=== PATIENT | male | born 1980 | race Two or more races ===

== ENCOUNTER 2019-09-24 06:31 | Emergency (ER) | payer SELFPAY ==
[~2019-09-24] VITALS: Ht 182.9 cm; Wt 86.2 kg
--- NOTE | 2019-09-24 06:55 | NUR ---
PT CAME TO ER BED 12 C/O BILATERAL FOOT PAIN. PT STATES THAT THE PAIN STARTED YESTERDAY. PT STATES THAT HE HAS REOCCURRING FOOT PAIN FROM WALKING. STATES THAT THE BLISTERS WILL HEAL AND BECOME CALLUSES THEN BECOME BLISTERS. BLISTERS NOTED ON ANKLE AND BALL OF FOOT. AAOX4. NO SOB. BREATHING EVENLY AND UNLABORED ON ROOM AIR. AWAITING MD KOENIG
[2019-09-24 07:13] LABS: BASOPHILS % (AUTO) 0.6 % (0.0-2.0); EOSINOPHILS % (AUTO) 1.1 % (0.0-6.0); HEMATOCRIT 39 % (39-51); HEMOGLOBIN 12.5 g/dL (13.5-17.5); LYMPHOCYTES # (AUTO) 0.9 /CMM (0.8-4.8); LYMPHOCYTES % (AUTO) 16.8 % (20.0-44.0); MEAN CORPUSCULAR HGB CONC 32 g/dl (31.0-36.0); MEAN CORPUSCULAR VOLUME 83 fL (80-96); MONOCYTES # (AUTO) 0.5 /CMM (0.1-1.30); MONOCYTES % (AUTO) 10.1 % (2.0-12.0); NEUTROPHILS # (AUTO) 3.9 /CMM (1.8-8.9); NEUTROPHILS % (AUTO) 71.4 % (43.0-81.0); PLATELET COUNT (AUTO) 303 /CMM (150-450); RED BLOOD CELL COUNT(AUTO) 4.63 MIL/uL (4.5-6.0); WHITE BLOOD COUNT (AUTO) 5.4 K/uL (4.3-11.0)
[2019-09-24] MEDS ORDERED: CEFTRIAXONE 500 MG VIAL ONE (07:13)
[2019-09-24] MEDS ORDERED: AZITHROMYCIN 250 MG TABLET ONE (07:14)
[2019-09-24] MEDS ORDERED: PENICILLIN G BENZATHINE 2.4 MMU/4 ML ML IM ONE ×2 (07:14→07:30)
[2019-09-24] MEDS ORDERED: LIDOCAINE /MPF 1% VIAL 5 ML VIAL ONE (07:15)
[2019-09-24 07:27] LABS: CALCIUM, SERUM 8.5 mg/dL (8.5-10.1); POTASSIUM 4.1 mmol/L (3.5-5.1)
[2019-09-24] MEDS ORDERED: CEFTRIAXONE 500 MG VIAL IM ONE (07:30)
[2019-09-24] MEDS ORDERED: AZITHROMYCIN 250 MG TABLET PO ONE (07:30)
[2019-09-24 07:33] LABS: ALBUMIN 3.8 g/dL (3.4-5.0); BILIRUBIN,DIRECT 0.1 mg/dL (0.0-0.2); BILIRUBIN,TOTAL 0.4 mg/dL (0.2-1.0); TOTAL PROTEIN, SERUM 7.4 g/dL (6.4-8.2)
--- NOTE | 2019-09-24 07:59 | NUR ---
Iker gonzalez in [facility] - 09/24/19 at 0904 by [employer] SUPERVISOR [facility]
--- NOTE | 2019-09-24 08:22 | NUR ---
AWAITING FOR [employer] FACULTY MEMBER
--- NOTE | 2019-09-24 08:42 | NUR ---
PHOTOGRAPHER FINISH CODY AT BEDSIDE, SIGNED HOMELESS WAIVER FORM
--- NOTE | 2019-09-24 08:58 | NUR ---
BREAKFAST TRAY PROVIDED, TOLERATING PO WELL.
[2019-09-24] MEDS ORDERED: CLOTRIMAZOLE 1% 15 GM TUBE TP SCH (09:00)
--- NOTE | 2019-09-24 09:00 | NUR ---
Social service consult requested by for homelessness. Per MD notes, pt is a 39-year-old man who is currently homeless and came to ED due to an STD. TUBE LANCER met with the pt. bedside. Pt is alert and oriented x 4. Pt's mood is congruent. Pt. had his eyes closed for most part of the assessment. Pt reports he came out to [place] for job but didn't work out. Pt is from [place]. Pt is currently living on the streets. Pt states he has been homeless for about a year. TUBE LANCER informed pt. about the winter correction program. Pt currently denies any substance abuse and states, he drinks alcohol at times. Pt reports to have a diagnosis of ADHD and was taking Adderall in the past. Pt denies suicidal and homicidal ideations and visual/ auditory hallucinations at this time. Pt reports to have no source of income. TUBE LANCER encouraged pt to apply for GR and food stamps and gave him a list of [facility]PSS offices in [place] and [facility]. TUBE LANCER also provided pt with the following homeless packet: [facility] [id number] [place] [facility] program list, [facility] located at [address] [facility] ; [facility] [place], [address] [place] [address], [place] ; [facility] [place], [address] [facility] ; [facility] Homeless Resource Directory which includes food stamps, transitional housing, showers and hot meals etc; Mental Health clinics such as [facility] ; [facility] ; Health clinics;[facility] and Alcohol treatment centers such as [facility], ; [facility] Substance Abuse Hotline and [facility] . Pt was provided with breakfast and a TAP card. No other social service needs are requested at this time.
--- NOTE | 2019-09-24 09:16 | NUR ---
Patient given written and verbal discharge instructions. Patient verbalizes understanding of instructions. Patient is ambulatory with steady gait. Refuses offer of longterm placement. Patient given list of available shelters in surrounding area. Name band removed, all belongings returned to patient. Tap card provided. In proper clothing upon discharge.
[2019-09-24 09:18] VITALS: BP 129/82
== END 2019-09-24 09:20 | disposition home or self-care (01) ==
LOC: ER 06:31
DX: A64 Unspecified sexually transmitted disease (principal); B35.3 Tinea pedis; F17.200 Nicotine dependence, unspecified, uncomplicated; Z59.0 Homelessness
CPT/HCPCS: 36415; 80048; 80076; 85025; 96372 ×2; 99284; J0558; J0696; J3490